=== PATIENT | female | born 1990 ===

== ENCOUNTER 2017-07-24 23:15 | Emergency (ER) | payer OTHER ==
[2017-07-24 23:23] VITALS: BP 116/78; PULSE 88; RESP 20; TEMP 97.8; O2SAT 99
--- NOTE | 2017-07-25 00:13 | C.PDOC ---
History Of Present Illness 26 year old female presents to the ED c/o worsening bilateral knee pain for the past 3 weeks. Patient reports she has previous history of B/L knee pain and discomfort. Patient states her pain has been worsening over the past 3 weeks and got aggravated due to prolonged standing at her job. Patient reports her pain feels liker a burning sensation in her knees. Patient denies weakness, numbness, injury, fall, trauma. Time Seen by Provider: 07/24/17 23:31 Chief Complaint (Nursing): Lower Extremity Problem/Injury History Per: Patient History/Exam Limitations: no limitations Onset/Duration Of Symptoms: Days Current Symptoms Are (Timing): Still Present Recent travel outside of the [place]: No Additional History Per: Patient - Knee Description Of Injury: Other Past Medical History Reviewed: Historical Data, Nursing Documentation, Vital Signs Vital Signs: Last Vital Signs Temp 97.8 F 07/24/17 23:18 Pulse 88 07/24/17 23:18 Resp 20 07/25/17 00:23 BP 116/78 07/24/17 23:18 Pulse Ox 99 07/25/17 00:47 - Medical History PMH: No Chronic Diseases Surgical History: No Surg Hx Family History: States: No Known Family Hx - Social History Hx Alcohol Use: Yes Hx Substance Use: No - Immunization History Hx Tetanus Toxoid Vaccination: No Hx Influenza Vaccination: No Hx Pneumococcal Vaccination: No Review Of Systems Constitutional: Negative for: Fever, Chills Musculoskeletal: Positive for: Leg Pain, Other (b/l knee pain) Skin: Negative for: Rash Neurological: Negative for: Weakness, Numbness Physical Exam - Physical Exam Appears: Non-toxic, No Acute Distress Skin: Normal Color, Warm, Dry Head: Atraumatic, Normacephalic Eye(s): bilateral: Normal Inspection Extremity: Normal ROM, No Tenderness, No Calf Tenderness, Capillary Refill (< 2 seconds), No Swelling Extremity: Bilateral: Normal Color And Temperature, Normal ROM Pulses: Left Dorsalis Pedis: Normal, Right Dorsalis Pedis: Normal Neurological/Psych: Oriented x3, Normal Motor, Normal Sensation Gait: Steady ED Course And Treatment O2 Sat by Pulse Oximetry: 99 (ON RA) Pulse Ox Interpretation: Normal Progress Note: Patient was advised on taking NSAIDS for her pain. Patient was also given information and advise to follow up with her PMD and ortho in 2 days for further evaluation. Patient is ambulatory with no pain. Disposition Counseled Patient/Family Regarding: Diagnosis, Need For Followup - Disposition Referrals: [facility] [place] [Outside] Disposition: HOME/ ROUTINE Disposition Time: 00:11 Condition: STABLE Additional Instructions: Please follwo up with PMD/ Orthopedist Use knee brace for support Tylenol or advil for pain Return to ER if worse Instructions: Knee Pain (DC) Forms: [employer] (Macedonian), Work Excuse - Clinical Impression Clinical Impression: Arthralgia of knee - PA / PHOTO PRODUCER / Resident Statement MD/DO has reviewed & agrees with the documentation as recorded. - Scribe Statement The provider has reviewed the documentation as recorded by the Scribe Paolo Blue All medical record entries made by the Lacieibdavid were at my direction and personally dictated by me. I have reviewed the chart and agree that the record accurately reflects my personal performance of the history, physical exam, medical decision making, and the department course for this patient. I have also personally directed, reviewed, and agree with the discharge instructions and disposition.
== END 2017-07-25 00:23 | disposition home or self-care (01) ==
LOC: C.ER 23:15
DX: M25.562 Pain in left knee (principal); M25.561 Pain in right knee